=== PATIENT | male | born 1985 | race Caucasian/White ===

== ENCOUNTER 2016-05-30 14:58 | Emergency (ER) | payer OTHER ==
--- NOTE | ~2016-05-30 | CR243 ---
[facility] A Service of [facility] & [facility] RADIOLOGY TEXT RESULTS PATIENT: LYUDMILA DICK LOCATION: SED : [birth year] UNIT #: [id number] AGE: [address]: Yara Lujan SEX: M ORDER DR: [id number] [address] [address] [id number] E MR#: [id number] Acc #: [id number] NAME: LYUDMILA DICK : 1985 SEX: M STUDY DATE/TIME: 05/30/2016 14:54 UNIT: SED ROOM: STUDY DESCRIPTION: CR Thoracic Spine 3 Views Attending Physician: Yara Lujan Pa-C Ordering Physician: Physician Non-Staff Primary Care Physician: Primary Care Physician No MEDICAL IMAGING REPORT This report is preliminary unless electronic signature is present. EXAM Thoracic series, 05/30/2016 INDICATION 30-year-old male with history of trauma, fell from ladder at a height of 5-6 feet. Landed on his side. Had a sharp shooting pain when the injury occurred 2 days ago. Neck and back pain. TECHNIQUE 3 views of the thoracic spine. No comparisons. Cervicothoracic junction intact. No acute fracture. Alignment preserved. No significant degenerative changes. IMPRESSION Negative. Dictated by... Fercho Bueno M.D. THIS IS AN ELECTRONICALLY VERIFIED REPORT Fercho Bueno M.D. at 05/31/2016 7:20 AM Isabel TD: 05/31/2016 01:18 JOB #: [id number] MEDICAL IMAGING REPORT
--- NOTE | ~2016-05-30 | CR213 ---
[facility] A Service of [facility] RADIOLOGY TEXT RESULTS PATIENT: LYUDMILA DICK LOCATION: SED : [birth year] UNIT #: [id number] AGE: [address]: Yara Lujan SEX: M ORDER DR: [id number] [address] [address] [id number] E MR#: [id number] Acc #: [id number] NAME: LYUDMILA DICK : 1985 SEX: M STUDY DATE/TIME: 05/30/2016 14:54 UNIT: SED ROOM: STUDY DESCRIPTION: CR Ribs Unilateral 2 View Rt Attending Physician: Yara Lujan Pa-C Ordering Physician: Jose Carnes M.D. Primary Care Physician: Primary Care Physician No MEDICAL IMAGING REPORT This report is preliminary unless electronic signature is present. EXAM Right rib series, 05/30/2016 INDICATIONS 30-year-old male with a history of a fall from a ladder at a height of 5-6 feet 2 days ago. Landed on the side and has had bad, sharp shooting pain in the ribs. Neck and back pain. TECHNIQUE Frontal chest and 2 views of the right ribs performed. COMPARISON 09/11/2015 FINDINGS Cardiac silhouette unremarkable. Vascularity is normal. Lungs are clear. No pneumothorax or effusion. Right CP angle partially excluded on one of the frontal projections. No distinct rib fracture. IMPRESSION 1. No distinct rib fracture, pneumothorax or pleural effusion. 2. Lungs appear clear. Dictated by... Fercho Bueno M.D. THIS IS AN ELECTRONICALLY VERIFIED REPORT Fercho Bueno M.D. at 05/31/2016 7:20 AM SIENNA/oswaldo TD: 05/31/2016 02:05 [facility] A Service of [facility] RADIOLOGY TEXT RESULTS PATIENT: LYUDMILA DICK LOCATION: SED : 86 UNIT #: [id number] AGE: [address]: Yara Lujan SEX: M ORDER DR: JOB #: [id number] MEDICAL IMAGING REPORT
--- NOTE | ~2016-05-30 | CR151 ---
[facility] A Service of [facility] RADIOLOGY TEXT RESULTS PATIENT: LYUDMILA DICK LOCATION: SED : [birth year] UNIT #: [id number] AGE: [address]: Yara Lujan SEX: M ORDER DR: [id number] [address] [address] [id number] E MR#: [id number] Acc #: [id number] NAME: LYUDMILA DICK : 1985 SEX: M STUDY DATE/TIME: 05/30/2016 14:54 UNIT: SED ROOM: STUDY DESCRIPTION: CR Hip Min 2 Views Rt Attending Physician: Yara Lujan Pa-C Ordering Physician: Physician Non-Staff Primary Care Physician: Primary Care Physician No MEDICAL IMAGING REPORT This report is preliminary unless electronic signature is present. EXAM Right hip 2 views, 05/30/2016 INDICATION 30-year-old male with history of trauma 2 days ago, fell from a ladder at a height of 5-6 feet, landed on his side and has had sharp shooting pain in the back and neck. TECHNIQUE Frontal and frog views of the right hip were performed. No comparisons. FINDINGS Findings on the frontal projection a portion of the right hip is not included in the field of view. A repeat frontal view is recommended to include the entire right hip. On the frog view. There is no acute fracture. No significant degenerative change. Bony pelvis appears intact. SI joints intact. IMPRESSION 1. No acute fracture or significant degenerative change. 2. The right hip is not fully included in the field On the right hip is not fully included in the field of view on the frontal projection. A repeat frontal view is recommended when clinically appropriate. Dictated by... Fercho Bueno M.D. THIS IS AN ELECTRONICALLY VERIFIED REPORT Fercho Bueno M.D. at 05/31/2016 7:20 AM SIENNA/varghese [facility] A Service Community [facility] RADIOLOGY TEXT RESULTS PATIENT: LYUDMILA DICK LOCATION: SED : [birth year] UNIT #: [id number] AGE: [address]: Yara Lujan SEX: M ORDER DR: TD: 05/31/2016 01:22 JOB #: [id number] MEDICAL IMAGING REPORT
--- NOTE | ~2016-05-30 | CR181 ---
[facility] A Service [facility] RADIOLOGY TEXT RESULTS PATIENT: LYUDMILA DICK LOCATION: SED : [birth year] UNIT #: [id number] AGE: [address]: Yara Lujan SEX: M ORDER DR: [id number] [address] [address] [id number] E MR#: [id number] Acc #: [id number] NAME: LYUDMILA DICK : 1985 SEX: M STUDY DATE/TIME: 05/30/2016 14:54 UNIT: SED ROOM: STUDY DESCRIPTION: CR Lumbar Spine 2 or 3 Views Attending Physician: Yara Lujan Pa-C Ordering Physician: Physician Non-Staff Primary Care Physician: Primary Care Physician No MEDICAL IMAGING REPORT This report is preliminary unless electronic signature is present. EXAM Lumbar series, 05/31/2015 INDICATION 30-year-old male complaining of neck and back pain after a fall from a ladder and a height of 5-6 feet, landed on his side and has had bad sharp shooting pain ever since the accident 2 days ago. TECHNIQUE 3 views of the lumbar spine. 2 views of the lumbar spine compared with 08/30/2015 FINDINGS Vertebral body heights are maintained. Alignment preserved. No acute fracture. Mild degenerative disc disease at L1-2 and L2-3. No significant facet arthropathy. IMPRESSION Mild degenerative changes but no acute fracture or malalignment. Dictated by... Fercho Bueno M.D. THIS IS AN ELECTRONICALLY VERIFIED REPORT Fercho Bueno M.D. at 05/31/2016 7:20 AM SIENNA/varghese TD: 05/31/2016 01:48 JOB #: [id number] [facility] A Service [facility] RADIOLOGY TEXT RESULTS PATIENT: LYUDMILA DICK LOCATION: SED : [birth year] UNIT #: [id number] AGE: [address]: Yara Lujan SEX: M ORDER DR: MEDICAL IMAGING REPORT
[~2016-05-30 14:58] MED LIST: AMOXICILLIN PO; AMOXICILLIN500 M1 PO; FLEXERIL10 MG; MOBIC PO; NO MEDICATIONS; PEN-VEE K PO; ROBAXIN500 MG PO; VOLTAREN50 MG PO; ZITHROMAX
== END 2016-05-30 16:06 | disposition home or self-care (01) ==
LOC: SED 14:58
DX: S39.92XA Unspecified injury of lower back, initial encounter (principal); W11.XXXA Fall on and from ladder, initial encounter; Y92.009 Unspecified place in unspecified non-institutional (private) residence as the place of occurrence of the external cause; F17.200 Nicotine dependence, unspecified, uncomplicated
CPT/HCPCS: 71100; 72072; 72100; 73502; 99284